=== PATIENT | male | born 1995 ===

== ENCOUNTER 2016-11-26 13:59 | Emergency (ER) | payer SELFPAY ==
[~2016-11-26] VITALS: Ht 188 cm; Wt 81.8 kg
[2016-11-26 14:03] VITALS: BP 110/63; PULSE 68; RESP 18; O2SAT 97
--- NOTE | 2016-11-26 14:10 | ED.REPORT ---
HPI-General Illness Date of Service Nov 26, 2016 ED Provider: Dr. Dinesh Ham D.O. A healthy 20 year old male presents to the ED via EMS with alcohol intoxication onset this morning. He was found wandering around [place]. His breathalyzer was 0.138. The patient has no complaints at this time. Nursing Notes Stated Complaint: INTOXICATED Chief Complaint: Substance Abuse Nursing Notes Reviewed: Yes Allergies: Coded Allergies: No Known Allergies (Unverified , 11/26/16) General Time Seen by MD: 14:10 Chief Complaint Other (Alcohol Intoxication) Hx Obtained From: Patient, EMS Arrived By: Ambulance Sudden in Onset?: No Onset Occurred: 1 - 4 hours ago Context of Onset: EtOH use Symptom Duration: Since onset Severity: Current: No pain currently Severity: Maximum: No pain Associated with: Denies: Fever Pertinent Negative: Relieved by nothing Context Related History: Reports Drug use/abuse suspected Recent Healthcare: No recent doctor visit Past Medical History Past Medical History None reported Past Surgical History None reported Smoking History Unknown if Ever Smoker Ambulatory Status Independent Review of Systems Mr. Chacon is without any complaints what so ever. Full Review of Systems Constitutional: Denies: Fever Respiratory: Denies: Non-productive cough, Shortness of breath GI: Denies: Abdominal pain, Vomiting Male: Denies Dysuria Musculoskeletal: Denies: Back pain Neurologic: Denies: Abnormal movement, Headache, Problem walking Psychiatric: Denies: Agitation, Change mental status, Confusion, Delusional, Depression, Hallucinations, auditory, Hallucinations, visual, Homicidal ideation , Suicidal ideation Complete sys rev & neg: except as marked. Physical Exam Vital Signs Vital Signs Date Time Temp Pulse Resp B/P Pulse Ox O2 Delivery O2 Flow Rate FiO2 11/26/16 14:03 36.0 68 18 110/63 97 Room Air Initial VS: Reviewed ENT: Conjunctiva normal, No scleral icterus Neck: Supple, Full range of motion Respiratory: No respiratory distress Skin: Warm, Dry, No cyanosis General/Constitutional: Awake, Alert, No acute distress Appearance / Presentation: Positive: Intoxicated Head / Eyes: Atraumatic, Normocephalic, PERRL Patient's eyes are not glazed over Neurologic: Oriented X3, Speech NL (Articulate), CN II - XII intact Can ambulate in a straight line Not ataxic Psychiatric: Not suicidal, Not homicidal Re-Eval/Medical Decision Med Decision/Clinical Course I found this gentleman to be clinically sober. He was awake, alert and oriented 4. His eyes were not glazed over. His pupils were 5 mm and reactive. There was no nystagmus. His speech was not slurred. He did not have an ataxic gait. He could not perform finger to nose testing. He did not wish to be in the emergency department any longer. As far as I can tell he was not under arrest. He denied having any suicidal or homicidal ideations. He states that he is going to walk home from here. He did not want us to contact friends or family. I did not feel that I could restrain him or detain him against his will. I do recommend that he be observed in the department until an adult could take him home. I certainly could not force this on him based on my judgment. He seemed to be able to make his own medical decisions. He will be discharged at his behest. Time of Eval: 14:40 Patient Status: Condition improved Re-Evaluation/Progress Note: Recommended staying in the ED until we could arrange for a ride home or another adult to pick him up. Patient declines and would prefer to leave AMA. Discussed with patient diagnosis and plan for discharge AMA. Follow-up and return to the ER instructions given. Patient agrees with plan for care and all questions were addressed. He left without instructions. Counseled Regarding: Diagnosis, Need for follow-up, When/why to return to ED Discharge & Departure Primary Impression: Alcohol abuse Disposition: Home Discharge Condition All VS Reviewed: Yes Condition: Stable Patient Instructions: Abuse of Alcohol (ED) Additional Instructions: I strongly recommend that you abstain from abusing alcohol. Stay with a responsible adult today. Do not operate a motor vehicle while under the influence of alcohol. Attend alcoholic anonymous meetings. Set up a follow up with your primary care provider. Return if any problems or any new or worsening symptoms. Referrals: [facility] Alcoholics Anonymous (AA) [facility] Scribe Attestation Portions of this note were transcribed by Crystal Goldsmith. I, Dr. Ham, personally performed the history, physical exam, and medical decision-making; I reviewed and confirmed the accuracy of the information in the transcribed note. Signed by: Moe Ennis, 11/26/2016, 15:53 copies to: [facility] ; Alcoholics Anonymous (AA); [facility] Dinesh Ham DO Nov 26, 2016 14:10 CRYSTAL GOLDSMITH Nov 26, 2016 15:54
== END 2016-11-26 14:50 | disposition home or self-care (01) ==
LOC: EDBD 13:59 → SED 13:59
DX: F10.129 Alcohol abuse with intoxication, unspecified (principal)